=== PATIENT | female | born 1970 | race Two or more races ===

== ENCOUNTER 2021-03-06 09:22 | Emergency (ER) | payer BC ==
--- OUTSIDE RECORDS SUMMARY | 2021-03-06 09:24 | XMS REPORT | Continuity of Care Document ---
:1970 Author Organization [facility] t Address [address] [place] [address] Dr. De La Cruz. [address] [place] [address] Care Team Providers Name Role Phone Amy MACHADO, A Primary Care Physician WIL Attending Clinician Unavailable Renee LEVI Attending Clinician Unavailable Abi PARRA Attending Clinician Unavailable Tip MACHADO Attending Clinician TIP Attending Clinician Unavailable OSWALD Attending Clinician Unavailable Payers Payer Name Policy Type Policy Number Effective Date Expiration Date S ource Problems Condition Condition Condition Status Onset Resolution Last Treating Co mments Source Name Details Category Date Date Treatment Clinician Date DDD DDD Disease Active 2019-04 Univers (degenerat (degenerat 0-15 it y of neo disc neo disc 00:00: [place] disease), disease), 00 [facility] cervical cervical Branch Chronic Chronic Disease Active 2019-04 Univers cough cough 0-04 ity of 00:00: [place] 00 Medical [facility] Globus Globus Disease Active 2019-04 Univers sensation sensation 0-04 ity of 00:00: [place] 00 Medical Branch IUD IUD Disease Active 2018-04 Univers (intrauter (intrauter 2-13 it y of ine ine 00:00: [place] device) in device) in [address] Branch Type 1 Type 1 Disease Active Univers diabetes diabetes 7-13 ity of mellitus mellitus 00:00: [place] with with 00 Medical microalbum microalbum Br anch inuria inuria Hypoglycem Hypoglycem Disease Active U nivers ia ia 7-13 ity of 00:00: [place] 00 Medical Branch Insulin Insulin Disease Active Univers pump pump 7-13 it[place] tit[place] [facility] Insulin Insulin Disease Active Univers pump pump 10-26 ity of status status 00:00: [place] 00 [facility] Pure Pure Disease Active Univers hyperchole hyperchole 4-04 it y of sterolemia sterolemia [place] [facility] Counseling Counseling Disease Active U nivers for for 4-04 ity of insulin insulin 00:00: [place] pump pump 00 [facility] Allergies, Adverse Reactions, Alerts Allergy Allergy Status Severity Reaction(s) Onset Inactive Treating Comm ents Source Name Type Date Date Clinician NO KNOWN Drug Active Univers ALLERGIE Class ity of S [facility] Social History Social Habit Start Date Stop Date Quantity Comments Source History of Cigarette Smoker Universi ty of tobacco use [facility] Exposure to Not sure University of SARS-CoV-2 [facility] (event) [place] Alcohol intake 2021-02-09 2021-02-09 0 /d University 00:00:00 00:00:00 [facility] Tobacco Comment 2018-03-22 2018-03-22 3 cigarettes daily U niversity of 00:00:00 00:00:00 x 30 years [facility] Sex Assigned At [birth year] Universit y of 00:00:00 00:00:00 [facility] Smoking Status Start Date Stop Date Source Current every day smoker 2020-07-05 00:00:00 Uni versity of [facility] Medications Ordered Filled Start Stop Current Ordering Indication Dosage Frequency Signature Comments Components Source Medication Medication Date Date Medication? Clinician (SIG) Name Name atorgersontati Yes [id number] 20mg Take 1 Univers n 20 mg 9-27 tablet by ity of tablet 00:00: mouth at [place] 00 bedtime. [facility] Branch lisinopriL Yes [id number] 20mg Take 1 U nivers 20 mg 9-27 tablet by ity of tablet 00:00: mouth [place] 00 daily. Medical Branch insulin Yes [id number] Use up to U nivers lispro, 9-27 80 units ity of human, 00:00: daily with [place] (HUMALOG 00 insulin Medical U-100 pump as Branch INSULIN) instructed 100 unit/mL injection albuterol Yes [id number] 2{puff} Inhale 2 Univers 90 8-27 Puffs ity of mcg/actuati 00:00: every 4 [place] as on inhaler 00 (four) Medical hours as Branch needed for Wheezing or Shortness of Breath. azelastine Yes 1{spray Use 1 Uni vers 137 mcg 8-20 } [place] in ity of (0.1 %) 00:00: each [place] nasal spray 00 nostril 2 Med ical (two) Branch times daily. Use in each nostril as directed fluticasone Yes 1{spray Use 1 Un sarah propionate 8-20 } [place] in ity o f 50 00:00: each [place] mcg/actuati 00 nostril 2 Med ical on nasal (two) Branch spray times daily. montelukast Yes [id number] 10mg Take 1 Univers (SINGULAIR) 8-20 tablet by ity of 10 mg 00:00: mouth [place] tablet 00 every Medical morning. Branch fluticasone Yes [id number] 2{puff} Inhale 2 Univers propionate 8-20 Puffs 2 ity of (FLOVENT 00:00: (two) [place] HFA) 110 00 times Medical mcg/actuati daily. Branch on inhaler SPIRIVA Yes Univers WITH 6-13 ity of HANDIHALER 00:00: [place] 18 mcg 00 Medical inhalation Branch device Blood-Gluco Yes Use as Univ ers se 5-24 directed ity of Transmitter 00:00: [place] (DEXCOM G6 00 Medical TRANSMITTER Branch ) Brandie Blood-Gluco Yes Use as Univ ers se Sensor 5-24 directed ity of (DEXCOM G6 00:00: [place] SENSOR) 00 Medical Brandie Branch Urine 0 Yes [id number] Use as Univer s Glucose-Ket 4-04 directed ity of ones Test 00:00: [place] Strp 00 [facility] Branch Immunizations Ordered Filled Immunization Date Status Comments Sour e Immunization Name Name Pneumococcal 2019-03-28 Completed [place] o f Polysaccharide, 00:00:00 [place] Med ical PPSV23 (PNEUMOVAX) Branch Td 2019-03-28 Completed [facility] 00:00:00 [facility] Influenza Virus 2018-12-[address] [facility]00 [facility] TDAP 2008-04-16 Completed [facility] 00:00:00 [facility] Vital Signs Vital Name Observation Time Observation Value Comments Source Body weight 2021-02-09 13:42:00 107.502 kg [facility] BMI 2021-02-09 13:42:00 35.00 kg/m2 [facility] Procedures This patient has no known procedures. Encounters Start End Encounter Admission Attending Care Care Encounter Source Date/Time Date/Time Type Type Clinicians Facility Department ID 2021-07-11 2021-07-11 Outpatient WIL [facility] [id number] Univers 11:30:00 11:30:00 SUZAN [id number] [facility] 2021-06-07 2021-06-07 Outpatient Clinton LEVI [facility] [id number] Univers 10:00:00 10:00:00 [facility]IE [id number] [facility] 2021-04-19 2021-04-19 Outpatient Clinton PARRA [facility] [id number] Univers 09:30:00 09:30:00 WONDIFUL [id number] ity o f [facility] 2021-02-09 2021-02-09 [facility] [id number] Univers 08:25:34 09:37:14 Visit [facility] [id number] it y of EYE [id number] [facility] [phone] [address] 2021-02-09 2021-02-09 Outpatient Clinton CURRY [facility] [id number] Univers 08:30:00 08:30:00 HUMAIR [id number] [facility] 2021-02-09 2021-02-09 Outpatient Clinton CURRY [facility] [id number] Univers 08:30:00 08:30:00 [facility] 2021-01-26 2021-01-26 Outpatient Clinton CURRY [facility] [id number] Univers 09:15:00 09:15:00 HUMAIR [id number] [facility] 2021-01-26 2021-01-26 Outpatient Clinton CURRY [facility] [id number] Univers 09:15:00 09:15:00 [facility] 2021-01-10 2021-01-10 Outpatient WIL, [facility] [id number] Univers 11:00:00 11:00:00 SUZAN [id number] [facility] 2021-01-10 2021-01-10 Outpatient R ALECLEA, [facility] [id number] Univers 11:00:00 11:00:00 SUZAN [facility] 2020-12-03 2020-12-03 Outpatient R LEVI, [facility] [id number] Univers 10:00:00 10:00:00 MAGGIE [id number] [facility] 2020-12-03 2020-12-03 Outpatient R AMITA, [facility] [id number] Univers 10:00[facility]00 [facility]00[facility]-07[facility]06 2020-07-06 Outpatient R [facility] [id number] Univers 13:20:00 13:20:00 [id number] [facility] 2020-07-06 2020-07-06 Outpatient R [facility] [id number] Univers 13:20:00 13:20:[facility] 2020-07-05 2020-07-05 Outpatient R WIL, [facility] [id number] Univers 11:00:00 11:00:00 SUZAN [id number] [facility] 2020-07-05 2020-07-05 Outpatient R WIL, [facility] [id number] Univers 11:00:00 11:00:00 SUZAN [facility] 2020-03-08 2020-03-08 Outpatient R [facility] [id number] Univers 11:30:00 11:30:00 [id number] [facility] 2020-03-08 2020-03-08 Outpatient R AMITA, [facility] [id number] Univers 11:30:00 [facility]:30:[facility] 2020-03-05 2020-03-05 Outpatient R AMITA, [facility] [id number] Univers 10:00:00 10:00:00 [facility] 2020-03-05 2020-03-05 Outpatient R AMITA, [facility] [id number] Univers 10:00:00 10:00:[facility] 2020-03-01 2020-03-01 Outpatient R WIL, [facility] [id number] Univers 10:30:00 10:30:00 [facility] 2020-03-01 Outpatient R WIL, [facility] [id number] Univers 10:30:00 10:30:00 SUZAN [id number] [facility] 2020-01-28 2020-01-28 Outpatient R AMY, [facility] [id number] Univers 12:45:00 12:45:00 WONDIFUL [id number] ity o f [facility] 2020-01-28 2020-01-28 Outpatient R AMY, [facility] [id number] Univers 00:00:00 00:00:00 WONDIFUL ity o f [facility] 2020-01-19 2020-01-19 Outpatient R LEVI, [facility] [id number] Univers 13:45:00 13:45:00 MAGGIE [facility] 2020-01-19 2020-01-19 Outpatient R LEVI, [facility] [id number] Univers 13:45:00 13:45:[facility] 2020-01-12 2020-01-12 Outpatient R OSWALD, [facility] [id number] Univers 08:45:00 08:45:00 MADDISON [id number] [facility] 2020-01-09 2020-01-09 Outpatient R AMY, [facility] [id number] Univers 16:00:00 16:00:00 WONDIFUL [id number] ity o f [facility] 2020-01-09 2020-01-09 Outpatient R AMY, [facility] [id number] Univers 16:00:00 16:00:00 WONDIFUL ity o f [facility] 2019-11-17 2019-11-17 Outpatient R WIL [facility] [id number] Univers 11:30:00 11:30:00 SUZAN [facility] 2019-11-17 2019-11-17 Outpatient R WIL [facility] [id number] Univers 11:30:00 11:30:00 SUZAN [facility] 2019-09-29 2019-09-29 Outpatient R WIL [facility] [id number] Univers 16:00:00 16:00:00 SUZAN [facility] 2019-08-26 2019-08-26 Outpatient R AMY [facility] [id number] Univers 09:30:00 09:30:00 WONDIFUL [id number] ity o f [facility] 2019-08-26 2019-08-26 Outpatient Clinton AMY [facility] [id number] Univers 09:30:00 09:30:00 WONDIFUL ity o f [facility] 2019-07-07 2019-07-07 Outpatient Clinton PARRA [facility] [id number] Univers 11:30:00 11:30:00 WONDIFUL [id number] ity o f [facility] 2019-07-07 2019-07-07 Outpatient Clinton PARRA [facility] [id number] Univers 11:30:00 11:30:00 WONDIFUL ity o [facility] Results This patient has no known results.
--- NOTE | 2021-03-06 10:19 | EDPHYS ---
Physician Documentation [facility] Name: Cristy Ritchie Age: 50 yrs Sex: Female : 1970 Arrival Date: 03/06/2021 Time: 09:24 Bed 12 Private MD: ED Physician Daniel Hannah HPI: 03/06 09:34 This 50 yrs old Other Female presents to ER via Ambulatory with complaints of Toe rn Injury. 09:34 The patient presents with a deformity, an injury. The complaints affect the left foot. rn Onset: The symptoms/episode began/occurred just prior to arrival. Modifying factors: The symptoms are alleviated by nothing, the symptoms are aggravated by weight bearing. Associated signs and symptoms: Pertinent negatives: swelling, tingling. Severity of symptoms: At their worst the symptoms were mild, in the emergency department the symptoms are unchanged. The patient has not experienced similar symptoms in the past. The patient has not recently seen a physician. Patient reports hit left foot on corner box, injury to left 5th toe and is pointing outwards. Reports pain more in the joint between foot and toe and not toe proper. tried to pull on it and straighten it and did not work. No other injuries.. 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 - Family history:: not pertinent. - Social history:: Smoking status: Patient/guardian denies using. - Hospitalizations: : No recent hospitalization is reported. ROS: 09:34 MS/extremity: Positive for injury or acute deformity, pain, Negative for ecchymosis, rn laceration. Exam: 09:34 Constitutional: This is a well developed, well nourished patient who is awake, alert, rn and in no acute distress. MS/ Extremity: Pulses equal, no cyanosis. Neurovascular intact. Left 5th toe with lateral displacement, mild bony tenderness proximal 5th toe, no ecchymosis, no significant swelling, no lacerations or open wounds. Vital Signs: 09:30 BP 141 / 83; Pulse 75; Resp 17; Temp 98.1; Pulse Ox 100% ; Weight 104.33 kg; Height 5 [facility] ft. 9 in. (175.26 cm); Pain 6/10; 10:28 BP 118 / 64; Pulse 70; Resp 17; Temp 97.8; Pulse Ox 99% ; Pain 2/10; [facility] 09:30 Body Mass Index 33.96 (104.33 kg, 175.26 cm) [facility] MDM: 09:26 Patient medically screened. rn 10:17 Differential diagnosis: fracture, sprain, dislocation. Data reviewed: vital signs, rn nurses notes, radiologic studies, plain films, and as a result, I will discharge patient. Test interpretation: by ED physician or midlevel provider: plain radiologic studies, X-ray left foot shows oblique fracture with mild displacement of the proximal fifth toe.. Counseling: I had a detailed discussion with the patient and/or guardian regarding: the historical points, exam findings, and any diagnostic results supporting the discharge/admit diagnosis, radiology results, the need for outpatient follow up, to return to the emergency department if symptoms worsen or persist or if there are any questions or concerns that arise at home. Special discussion: I discussed with the patient/guardian in detail that at this point there is no indication for admission to the hospital. It is understood, however, that if the symptoms persist or worsen the patient needs to return immediately for re-evaluation. Based on the history and exam findings, there is no indication for further emergent testing or inpatient evaluation. I discussed with the patient/guardian the need to see the crm marketing specialist for further evaluation of the symptoms. 03/06 09:34 Order name: XRAY Foot LEFT 3 View; Complete Time: 10:36 rn 03/06 10:17 Order name: Post-op Orthopedic Shoe; Complete Time: 10:29 rn 03/06 10:17 Order name: Splint: mal tape; Complete Time: 10:29 rn Administered Medications: No medications were administered Disposition Summary: 03/06/21 10:18 Discharge Ordered Location: Home rn Problem: new rn Symptoms: have improved rn Condition: Stable rn Diagnosis - Fracture of proximal phalanx of lesser toe(s) - Left 5th toe rn Followup: rn - With: Jeffery Little, SÁNCHEZ - When: 2 - 3 days - Reason: Recheck today's complaints, Re-evaluation by your physician Discharge Instructions: - Discharge Summary Sheet rn - Toe Fracture rn Forms: - Medication Reconciliation Form rn - Thank You Letter rn - Antibiotic psychiatric rn - Prescription Opioid Use rn Signatures: Dispatcher [employer] Daniel Wallace MD MD rn Hastedt, Jennifer, RN RN jh6
--- NOTE | 2021-03-06 10:19 | ER ---
Nurse's Notes [facility] Name: Cristy Ritchie Age: 50 yrs Sex: Female : 1970 Arrival Date: 03/06/2021 Time: 09:24 Bed 12 Private MD: Diagnosis: Fracture of proximal phalanx of lesser toe(s)-Left 5th toe Presentation: 03/06 09:30 Chief complaint: Patient states: Pt hit foot on box this am and poss dislocated lt 5th 6 toe. Coronavirus screen: Client denies travel out of the [place] in the last 14 days. At this time, the client does not indicate any symptoms associated with coronavirus-19. Ebola Screen: Patient negative for fever greater than or equal to 101.5 degrees Fahrenheit, and additional compatible Ebola Virus Disease symptoms. Initial Sepsis Screen: Does the patient meet any 2 criteria? No. Patient's initial sepsis screen is negative. Does the patient have a suspected source of infection? No. Patient's initial sepsis screen is negative. Risk Assessment: Do you want to hurt yourself or someone else? Patient reports no desire to harm self or others. Onset of symptoms was March 06, 2021. 09:30 Method Of Arrival: Ambulatory [facility] 09:30 Acuity: JULIUS 4 [facility] Triage Assessment: 09:33 General: Appears in no apparent distress. Behavior is calm, cooperative. Pain: [facility] Complains of pain in dorsum of left foot and left fifth toe Pain currently is 6 out of 10 on a pain scale. Quality of pain is described as aching, Pain began suddenly, Is continuous. 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 Historical: - Allergies: 09:32 No Known Allergies; [facility] - Home Meds: 09:32 Insulin: Regular Sub-Q [Active]; [facility] - PMHx: 09:32 Diabetes mellitus; [facility] - Immunization history:: Adult Immunizations up to date. - Family history:: not pertinent. - Social history:: Smoking status: Patient/guardian denies using. - Hospitalizations: : No recent hospitalization is reported. Screenin:35 Abuse screen: Denies threats or abuse. Nutritional screening: No deficits noted. [facility] Tuberculosis screening: No symptoms or risk factors identified. Fall Risk None identified. Assessment: 09:34 General: Appears in no apparent distress. Behavior is calm, cooperative. Pain: jh6 Complains of pain in dorsum of left foot, left fifth toe and Left fifth toenail Pain currently is 6 out of 10 on a pain scale. Musculoskeletal: Circulation, motion, and sensation intact. Capillary refill < 3 seconds, Bony deformity noted of left fifth toe. Vital Signs: 09:30 BP 141 / 83; Pulse 75; Resp 17; Temp 98.1; Pulse Ox 100% ; Weight 104.33 kg; Height 5 jh6 ft. 9 in. (175.26 cm); Pain 6/10; 10:28 BP 118 / 64; Pulse 70; Resp 17; Temp 97.8; Pulse Ox 99% ; Pain 2/10; jh6 09:30 Body Mass Index 33.96 (104.33 kg, 175.26 cm) 6 ED Course: 09:24 Patient arrived in ED. ds1 09:26 Dominique Cornejo RN is Primary Nurse. 6 09:26 Daniel Hannah MD is Attending Physician. rn 09:32 Triage completed. jh6 09:35 Patient has correct armband on for positive identification. jh6 10:05 X-ray(s) taken. jh6 10:13 XRAY Foot LEFT 3 View In Process Unspecified. EDMS 10:18 Jeffery Little DPM is Referral Physician. rn 10:26 Dressings: Adaptic X 2; lateral aspect of left foot "Kash tape" to 4th and 5th lt toe jh6 with cheko wrap. Pt tolerated well and ortho shoe placed with no issue. 10:28 Assist provider with fracture care. jh6 10:29 Splint/sling/ice applied as appropriate. jh6 10:29 Patient did not have IV access during this emergency room visit. jh6 Administered Medications: No medications were administered Outcome: 10:18 Discharge ordered by . rn 10:28 Discharged to home ambulatory. jh6 10:28 Condition: improved 10:28 Discharge instructions given to patient, family. 10:37 Patient left the ED. 6 Signatures: Dispatcher [employer] EDMS Glenis Mace ds1 Daniel Hannah MD MD rn Hastedt, Jennifer, RN RN [facility]
--- NOTE | 2021-03-06 10:33 | RAD REPORT ---
EXAM DESCRIPTION: RAD - Foot Left 3 View - 03/06/2021 10:13 am CLINICAL HISTORY: deformity 5th toe, blunt force trauma COMPARISON: No comparisons FINDINGS: Oblique transverse fracture is present through the midshaft of the fifth proximal phalanx. There is approximately 30 degrees angulation deformity laterally of the distal fracture fragment. Th e middle and distal phalanges of the fourth and fifth toes are fused as a normal developmental varian t. No other evidence for fracture. No other acute bone finding. Small plantar spur is present. No air or foreign body in the soft tissues. IMPRESSION: Left fifth proximal phalanx fracture with lateral angulation deformity.
[2021-03-06 10:43] VITALS: BP 118/64; TEMP 97.8; O2SAT 99
== END 2021-03-06 10:37 | disposition home or self-care (01) ==
LOC: ER 09:22
DX: S92.512A Displaced fracture of proximal phalanx of left lesser toe(s), initial encounter for closed fracture (principal); E11.9 Type 2 diabetes mellitus without complications; Z79.4 Long term (current) use of insulin
CPT/HCPCS: 99284